=== PATIENT | female | born 1955 | race Caucasian/White ===

== ENCOUNTER 2020-09-25 18:17 | Inpatient (IN) | payer MEDICARE, OTHER ==
[~2020-09-25] VITALS: Ht 167.6 cm; Wt 104.3 kg
[2020-09-25 23:33] LABS: RED BLOOD COUNT 4.8 M/UL (4.00-5.10); WHITE BLOOD COUNT 11.4 K/UL (4.5-11.0)
[2020-09-26] MEDS ORDERED: GABAPENTIN400 MG PO (18:22)
[2020-09-26] MEDS ORDERED: ESCITALOPRAM OX10 MG PO (18:23)
[2020-09-26] MEDS ORDERED: DEXILANT60 MG PO (18:23)
[2020-09-26] MEDS ORDERED: LAMOTRIGINE100 MG PO (18:24)
[2020-09-26] MEDS ORDERED: SINEQUAN CAP 5050 MG PO (18:24)
[2020-09-26] MEDS ORDERED: BUSPAR 10MG10 MG PO (18:24)
[2020-09-26] MEDS ORDERED: FERROUS SULFAT325 MG PO (18:25)
[2020-09-26] MEDS ORDERED: VENLAFAXINE H37.5 M2 PO (18:25)
[2020-09-26] MEDS ORDERED: LEVOTHYROXINE100 MCG PO (18:26)
[2020-09-26] MEDS ORDERED: CETIRIZINE HCL10 MG PO (18:26)
[2020-09-27 02:23] LABS: HEMOGLOBIN 10.2 gm/dl (12.3-15.3); RED BLOOD COUNT 3.86 M/UL (4.00-5.10); WHITE BLOOD COUNT 7.3 K/UL (4.5-11.0)
[2020-09-28 03:27] LABS: HEMOGLOBIN 9.8 gm/dl (12.3-15.3); RED BLOOD COUNT 3.67 M/UL (4.00-5.10); WHITE BLOOD COUNT 5.8 K/UL (4.5-11.0)
[2020-09-29 04:15] LABS: HEMOGLOBIN 9.5 gm/dl (12.3-15.3); RED BLOOD COUNT 3.62 M/UL (4.00-5.10); WHITE BLOOD COUNT 5.8 K/UL (4.5-11.0)
[2020-09-30 04:49] LABS: HEMOGLOBIN 9.4 gm/dl (12.3-15.3); RED BLOOD COUNT 3.58 M/UL (4.00-5.10); WHITE BLOOD COUNT 5.7 K/UL (4.5-11.0)
[2020-09-30] MEDS ORDERED: VENTOLIN HFA 66.7 GM INH (12:54)
[2020-09-30] MEDS ORDERED: LEVOFLOXACIN750 MG PO (12:54)
== END 2020-09-30 18:00 | disposition home or self-care (01) | DRG 871 ==
LOC: ER1 18:17 → M/S 09-26 00:30 → CDU 09-26 00:30 → M/S 09-26 13:15
PROVIDERS: Emergency Medicine; Internal Medicine; ADMIT Internal Medicine
DX: A41.9 Sepsis, unspecified organism (principal); J18.9 Pneumonia, unspecified organism; J96.01 Acute respiratory failure with hypoxia; N17.9 Acute kidney failure, unspecified; R65.20 Severe sepsis without septic shock; Z20.822 Contact with and (suspected) exposure to COVID-19; E03.9 Hypothyroidism, unspecified; F41.9 Anxiety disorder, unspecified; F32.9 Major depressive disorder, single episode, unspecified; D72.829 Elevated white blood cell count, unspecified; E66.9 Obesity, unspecified; D64.9 Anemia, unspecified; E87.6 Hypokalemia; Z68.37 Body mass index [BMI] 37.0-37.9, adult; Z98.890 Other specified postprocedural states; Z88.0 Allergy status to penicillin; Z82.49 Family history of ischemic heart disease and other diseases of the circulatory system
CPT/HCPCS: 36415; 36600; 71045; 71046; 80048; 80053; 82550; 82553; 82728; 82803; 83540; 83550; 83605; 83690; 83735; 83874; 83880; 84100; 84439; 84443; 84484; 85025; 85045; 85610; 85730; 87040; 93005; 94640; 94664; 94760; 96365; 96366; 96368; 99285; J0456; J0696; J1650; J7030; U0002